=== PATIENT | female | born 2000 | race Caucasian/White ===

== ENCOUNTER 2022-11-07 10:57 | Day surgery (SDC) | payer BC ==
[2022-11-07 11:38] VITALS: BMI 25.1
[2022-11-07] MEDS ORDERED: hydrALAZINE 20 MG/ML VIAL SLOW IVP PRN (12:39)
== END 2022-11-07 16:22 | disposition home or self-care (01) ==
LOC: CSHLD/OP 10:57
PROVIDERS: ATTEND Obstetrics & Gynecology
DX: O36.8130 Decreased fetal movements, third trimester, not applicable or unspecified (principal); Z3A.39 39 weeks gestation of pregnancy
CPT/HCPCS: 76819; 99282

== ENCOUNTER 2022-11-07 18:57 | Inpatient (IN) | payer BC ==
[~2022-11-07 18:57] MED LIST: Bupivacaine 0.25% HCL 30 ML VIAL ONE; HYDROcodone/Acetaminophen 5/325 mg Tablet PO PRN; Ibuprofen 800 MG TAB PO PRN; Lidocaine 1% (PF) 30 ML VIAL SC PRN; Misoprostol 200 MCG TAB PR PRN; NS w/ Oxytocin 30 units 500 ML IV SCH; Ondansetron PF 4 MG/2 ML Vial IVP PRN; Promethazine HCl 25 MG/ML VIAL IM PRN; ePHEDrine Sulfate 50 MG/10 ML VIAL ONE; fentaNYL 50 mcg/mL 1 mL Vial SLOW IVP PRN; hydrALAZINE 20 MG/ML VIAL SLOW IVP PRN
[2022-11-07] MEDS: Lactated Ringer's 1,000 ML IV SCH (19:30)
[2022-11-07 19:53] LABS: Hematocrit 30.3 % (34.9-44.5); Hemoglobin 10.1 g/dL (12.0-15.5); Mean Corpuscular HGB CONC 33.3 g/dL (32.0-36.0); Mean Corpuscular Hemoglobin 27.8 pg (27.0-33.0); Mean Corpuscular Volume 83.5 fl (81.6-98.3); Mean Platelet Volume 9.7 fl (7.4-10.4); Platelet Count 226 10x3/uL (150-450); RBC Distribution Width 13.2 % (11.5-14.5); Red Blood Cell (RBC) Count 3.63 10x6/uL (3.90-5.03); White Blood Cell (WBC) Count 12.9 10x3/uL (3.5-10.5)
[2022-11-07 20:07] VITALS: BMI 25.1
[2022-11-07 20:20] LABS: Hep B Surf Ag - L&D Non-Reactive S/CO (NonReactive); Syphilis Antibody Nonreactive (Nonreactive); Syphilis Antibody Index 0.03 S/CO (<1.00 Non-Reactive)
[2022-11-07] MEDS: Misoprostol 100 MCG TAB VAG SCH ×2 (20:25→22:18)
[2022-11-08] MEDS: Misoprostol 100 MCG TAB VAG SCH ×3 (00:34→20:06)
[2022-11-08] MEDS: Lactated Ringer's 1,000 ML IV SCH ×2 (02:16→20:06)
[2022-11-08] MEDS ORDERED: fentaNYL/Ropivacaine Epidural 100 ML ONE (10:14)
[2022-11-08] MEDS ORDERED: diphenhydrAMINE 50 MG/ML VIAL IVP PRN (10:51)
[2022-11-08] MEDS ORDERED: ePHEDrine Sulfate 50 MG/10 ML VIAL SLOW IVP PRN (10:51)
[2022-11-08] MEDS ORDERED: Acetaminophen 325 MG TAB PO PRN (10:51)
[2022-11-08] MEDS ORDERED: Promethazine HCl 25 MG/ML VIAL IM PRN (10:51)
[2022-11-08] MEDS ORDERED: Ondansetron PF 4 MG/2 ML Vial IVP PRN (10:51)
[2022-11-08] MEDS ORDERED: Lactated Ringer's 500 ML IV PRN (10:51)
[2022-11-08] MEDS ORDERED: Naloxone HCl 0.4 mg/ml Vial IVP PRN ×2 (10:51)
[2022-11-08] MEDS ORDERED: Moisturizing Cream (Eucerin) 113 GM JAR TOP PRN (10:51)
[2022-11-08] MEDS ORDERED: Communication Order-Pharmacy FS SCH (11:00)
[2022-11-08] MEDS ORDERED: fentaNYL 2 mcg/Ropivacaine 0.2% Epidural 100 ML CADD EPIDURAL SCH (11:00)
[2022-11-08] MEDS ORDERED: Lanolin Ointment 7 GM TUBE TOP PRN (15:03)
[2022-11-08] MEDS ORDERED: Benzocaine-Menthol 82.5 ML CAN TOP PRN (15:03)
[2022-11-08] MEDS ORDERED: NS w/ Oxytocin 30 units 500 ML IV SCH (15:03)
[2022-11-08] MEDS ORDERED: Milk Of Magnesia 30 ML UDCUP PO PRN (15:03)
[2022-11-08] MEDS ORDERED: Methylergonovine 0.2 MG/ML VIAL IM PRN (15:03)
[2022-11-08] MEDS ORDERED: Boostrix 0.5 ML (Tdap) VIAL (>/=7 yrs of age) IM ONE (15:03)
[2022-11-08] MEDS ORDERED: HYDROcodone/Acetaminophen 5/325 mg Tablet PO PRN (15:03)
[2022-11-08] MEDS ORDERED: Bisacodyl 10 MG SUPP PR PRN (15:03)
[2022-11-08] MEDS ORDERED: hydrALAZINE 20 MG/ML VIAL SLOW IVP PRN (15:03)
[2022-11-08] MEDS ORDERED: Misoprostol 200 MCG TAB VAG PRN (15:03)
[2022-11-08] MEDS: Ferrous Sulfate 325 MG TAB PO SCH (19:36)
[2022-11-08] MEDS: Ibuprofen 800 MG TAB PO SCH (21:18)
[2022-11-08] MEDS: Docusate 100 MG CAP PO SCH (21:18)
[2022-11-09] MEDS: HYDROcodone/Acetaminophen 5/325 mg Tablet PO PRN ×3 (01:22→16:34)
[2022-11-09] MEDS: Ibuprofen 800 MG TAB PO SCH ×3 (05:33→21:38)
[2022-11-09] MEDS: Prenatal Vitamin 1 TAB PO SCH (08:37)
[2022-11-09] MEDS: Docusate 100 MG CAP PO SCH ×2 (08:40→21:38)
[2022-11-09] MEDS: Ferrous Sulfate 325 MG TAB PO SCH ×2 (09:00→18:32)
[2022-11-10] MEDS: Ibuprofen 800 MG TAB PO SCH (06:18)
[2022-11-10] MEDS: Ferrous Sulfate 325 MG TAB PO SCH (07:50)
[2022-11-10] MEDS: Prenatal Vitamin 1 TAB PO SCH (09:25)
[2022-11-10] MEDS: Docusate 100 MG CAP PO SCH (09:25)
[2022-11-10 10:44] VITALS: BP 102/59; TEMP 98.4
== END 2022-11-10 11:40 | disposition home or self-care (01) | DRG 807 ==
LOC: CSHLD 18:57 → CSHPP 11-08 16:30
PROVIDERS: ADMIT Obstetrics & Gynecology; ATTEND Obstetrics & Gynecology
PROC: 10907ZC Drainage of Amniotic Fluid, Therapeutic from Products of Conception, Via Natural or Artificial Opening (ICD-10-PCS; principal; 2022-11-08)
PROC: 10E0XZZ Delivery of Products of Conception, External Approach (ICD-10-PCS; 2022-11-09)
PROC: 0HQ9XZZ Repair Perineum Skin, External Approach (ICD-10-PCS; 2022-11-09)
DX: O70.0 First degree perineal laceration during delivery (principal); Z37.0 Single live birth; Z3A.39 39 weeks gestation of pregnancy
CPT/HCPCS: 36415; 51702; 76819; 85027; 86780; 86850; 86900; 86901; 87340; 99282; J2590; J3010; J7120; S0020